=== PATIENT | male | born 1975 | race Hispanic/Latino ===

== ENCOUNTER 2019-11-18 18:12 | Inpatient (IN) ==
[2019-11-18] MEDS ORDERED: ZOFRAN ODT PO ONE (19:01)
--- NOTE | 2019-11-18 19:01 | PROVIDER DOCUMENTATION ---
This chart was entered by Sandra Palmer Scribe, acting as scribe for Andi Marie MD. HPI-Abdominal Pain/GI Problem - General Chief Complaint: Constipation Stated Complaint: STOMACH PAIN Time Seen by Provider: 11/18/19 18:40 Source: patient Allergies/Adverse Reactions: Patient Allergies Allergy/AdvReac Type Severity Reaction Status Date / Time No Known Allergies Allergy Verified 11/18/19 18:31 Home Medications: Home Medication List Medication Instructions Recorded Confirmed Last Taken Type NK [No Home Medications] 11/18/19 11/18/19 Unknown History - History of Present Illness-ABD Nature of Presenting Problems: Patient is a 44 y/o male presenting to the ED today c/o abdominal pain and co nstipation. Patient reports he has not had a bowel movement today. Patient reports he has had some N/V. Patient reports he has been unable to eat today. Patient states that last thing he ate was tacos yesterday. Patient denies dysuria. Patient denies all other signs/symptoms. Abdominal Pain Onset Location: reports: generalized abdomen Pain Radiation: reports: no radiation Quality of Pain: reports: aching Onset/Duration: reports: this morning Timing: reports: still present Associated Symptoms: reports: constipation Last BM: 24 hours ago Bruising or Bleeding Gums?: No Similar Symptoms Previously?: No Recently seen or treated by another doctor?: No Review of Systems - Adult - REVIEW OF SYSTEMS - ADULT Constitutional: denies: chills, fever Eyes: reports: no symptoms reported Ears, Nose, Mouth & Throat: reports: no symptoms reported Cardiovascular: denies: chest pain Respiratory: denies: cough, shortness of breath Gastrointestinal: reports: abdominal pain, constipation, nausea, vomiting. denies: diarrhea Genitourinary: denies: dysuria Musculoskeletal: reports: no symptoms reported Integumentary: reports: no symptoms reported Neurological: reports: no symptoms reported Psychiatric: reports: no symptoms reported Endocrine: reports: no symptoms reported Hematologic/Lymphatic: reports: no symptoms reported Allergic/Immunologic: reports: no symptoms reported All Other Systems: Reviewed and Negative Past History - Adult - PAST MEDICAL HISTORY-ADULT Review of Records: reports: Old Records Reviewed, Nursing Assessment Review, Medications Reviewed, Social history reviewed & non-contributory. Major Childhood Illnesses: reports: denies history Cardiovascular: reports: denies history Respiratory: reports: denies history Gastrointestinal: reports: denies history Obstetrical/Gynecological: reports: denies history Genitourinary: reports: denies history Musculoskeletal: reports: denies history Neurological: reports: denies history Psychiatric: reports: denies history Endocrine/Immune: reports: denies history Other Conditions: reports: denies history Physical Exam-General - PHYSICAL EXAM-ADULT Initial Vital Signs Reviewed: Yes - CONSTITUTIONAL General Appearance: appears well, alert, no apparent distress - EYES Eyes: PERRL/EOMI - HEAD, EARS, NOSE, MOUTH & THROAT HENMT: normocephalic/atraumatic, moist mucous membranes, normal ENT inspection - NECK Neck: non-tender, full range of motion, supple - RESPIRATORY Respiratory: lungs clear, normal breath sounds, no respiratory distress, no accessory muscle use - CARDIOVASCULAR Cardiovascular: regular rate, rhythm, no edema - GASTROINTESTINAL (ABDOMEN) Abdominal Exam: soft, tenderness (epigastric) - LYMPHATIC Lymphatic: no adenopathy - MUSCULOSKELETAL Back Exam: normal inspection, no CVA tenderness, no vertebral tenderness Extremity: normal range of motion, normal gait, normal inspection, no pedal edema - SKIN Integumentary: normal color, normal turgor, warm/dry - NEUROLOGIC Neurologic: grossly normal - PSYCHIATRIC Psych/Mental Status: normal mood/affect, normal thought content, normal thought process Progress - PLAN OF CARE/RESULTS Progress/Plan/Lab Results: Vital Signs - 8 hr 11/18/19 18:29 Temperature 98 F Pulse Rate 90 Respiratory Rate 18 Blood Pressure 139/92 O2 Sat by Pulse Oximetry 95 Orders Category Date Time Status Saline Loc DIRECTED Care 11/18/19 18:25 Active NPO Diet 11/18/19 18:25 Active FLAT/UPRIGHT ABD/1 VIEW CHEST [RAD] Stat Exams 11/18/19 18:28 Ordered CBC WITH ELECTRONIC DIFF [HEME] Stat Lab 11/18/19 18:25 Ordered COMPREHENSIVE METABOLIC PANEL [CHEM] Stat Lab 11/18/19 18:25 Uncollected LIPASE [CHEM] Stat Lab 11/18/19 18:25 Uncollected Result Diagrams: 11/18/19 19:35 11/18/19 19:35 - XRAY 1 XRAY Study: Abdomen Impression: See EMR Report (FLAT/UPRIGHT ABD/1 VIEW CHEST - 11/18/2019 INDICATION: constipation nausea TECHNIQUE: COMPARISON: None FINDINGS: The chest is clear. There is a nonobstructive bowel gas pattern. No free air or abnormal calcifications. IMPRESSION: Negative exam. Electronically signed by Carlos Dickerson 11/18/2019 7:32 PM 11/18/191931 Interpreting Physician: Carlos Dickerson MD Dictated Date/Time: 11/18/191926 cc: Adams Slater MD; None,PCP) - CT/MRI 1 CT Study: Abdomen, Pelvis CT Results: acute pancreatitis MRI Study: Abdomen Impression: See EMR Report (CT ABD/PELVIS W/IV CONT ONLY - 11/18/2019 INDICATION: abdominal pain COMPARISON: None FINDINGS: The lung bases are clear and the heart size is normal. There is severe heterogeneous fatty change of the liver. There is moderate edema around the pancreas compatible with pancreatitis. No drainable fluid collections. No biliary dilation. The gallbladder is absent. No bowel obstruction or inflammation. Urinary bladder, prostate, and rectum are normal. Bones are intact and well mineralized. IMPRESSION: 1. Acute pancreatitis. 2. Severe diffuse fatty change of the liver. This exam was performed using automated exposure control, adjustment of mA or kV according to patient size, and/or use of iterative reconstruction technique Electronically signed by Carlos Dickerson 11/18/2019 9:07 PM 11/18/192106 Interpreting Physician: Carlos Dickerson MD Dictated Date/Time: 11/18/192104 cc: Andi Marie MD; None,PCP) - CONSULTS/PCP/HOSPITALIST Notification #1 *Consult/PCP/Hospitalist*: Dr. Gabriel hospitalist Time Discussed: 21:10 Consult Disposition: Admit Departure - Departure Date of Disposition Decision: 11/18/19 Time of Disposition Decision: 21:15 DIAGNOSIS: Acute pancreatitis Qualifiers: Pancreatitis type: unspecified pancreatitis type Acute pancreatitis complication: unspecified Qualified Code(s): K85.90 - Acute pancreatitis without necrosis or infection, unspecified Disposition: ADMITTED INPATIENT 09 Certified Medical Emergency: Emergent Condition: Stable Referrals and Follow-Ups: None,PCP [Primary Care Provider] - - Critical Care Note This patient required my direct & personal management of CC.: No Attestation - Physician/ LYUDMILA Attestation Patient care was provided by Advanced Practice Provider:: No The physician spent face to face time with patient:: Yes Advanced Practice Provider documentation review:: Supervising physician onsite and consulted in the evaluation and care of this patient. The physician did have a face to face encounter with the patient. This chart was documented by the indicated scribe, (Sandra Palmer, Meño) and accurately reflects the services I performed and decisions made by me, Andi Marie MD, as attested by the provider's signature.
--- NOTE | 2019-11-18 19:34 | Diag Imaging Result Doc PS360 ---
FLAT/UPRIGHT ABD/1 VIEW CHEST - 11/18/2019 INDICATION: constipation nausea TECHNIQUE: COMPARISON: None FINDINGS: The chest is clear. There is a nonobstructive bowel gas pattern. No free air or abnormal calcifications. IMPRESSION: Negative exam. Electronically signed by Carlos Dickerson 11/18/2019 7:32 PM
[2019-11-18 19:43] LABS: BASO# 0.04 X1000 (0.0-0.2); BASO% 0.4 % (0.0-0.8); EOS# 0.03 X1000 (0.0-0.7); EOS% 0.3 % (0.0-10.0); HEMATOCRIT 42.1 % (42.0-52.0); HEMOGLOBIN 14.4 g/dL (14.0-18.0); IMM GRAN# 0.02 X1000 (0.0-0.04); IMM GRAN% 0.2 % (0.0-0.5); LYMPH# 0.87 X1000 (1.2-3.4); LYMPH% 8.3 % (20.5-51.1); MCH 28.8 PG (27-31); MCHC 34.2 g/dL (33-37); MCV 84.2 FL (81-99); MONO# 0.77 X1000 (0.11-0.59); MONO% 7.3 % (1.7-9.3); MPV 11.3 FL (7.4-10.4); NEUT# 8.75 X1000 (1.4-6.5); NEUT% 83.5 % (42.2-75.2); PLT 215 X1000 (130-400); WBC 10.48 X1000 (4.8-10.8)
[2019-11-18 20:12] LABS: AGAP 14; ALBUMIN 4.4 g/dL (3.5-5.0); ALKALINE PHOSPHATASE 68 U/L (32-122); BUN 8 mg/dL (8-22); CALCIUM 8.7 mg/dL (8.8-10.2); CHLORIDE 91 mmol/L (98-107); COSMO 267; CREATININE 0.4 mg/dL (0.7-1.2); ESTIMATED GFR > 60; GLUCOSE 239 mg/dL (70-104); GOT 38 U/L (10-34); GPT 34 U/L (10-44); LIPASE 258 U/L (13-60); POTASSIUM 4.3 mmol/L (3.5-5.1); SODIUM 130 mmol/L (136-145); TCO2 25 mmol/L (25-35); TOTAL PROTEIN 7.6 g/dL (6.3-8.3)
--- NOTE | 2019-11-18 21:09 | Diag Imaging Result Doc PS360 ---
CT ABD/PELVIS W/IV CONT ONLY - 11/18/2019 INDICATION: abdominal pain COMPARISON: None FINDINGS: The lung bases are clear and the heart size is normal. There is severe heterogeneous fatty change of the liver. There is moderate edema around the pancreas compatible with pancreatitis. No drainable fluid collections. No biliary dilation. The gallbladder is absent. No bowel obstruction or inflammation. Urinary bladder, prostate, and rectum are normal. Bones are intact and well mineralized. IMPRESSION: 1. Acute pancreatitis. 2. Severe diffuse fatty change of the liver. This exam was performed using automated exposure control, adjustment of mA or kV according to patient size, and/or use of iterative reconstruction technique Electronically signed by Carlos Dickerson 11/18/2019 9:07 PM
[2019-11-18] MEDS ORDERED: ZOFRAN IV PRN (21:29)
[2019-11-18] MEDS ORDERED: NS 1,000 ML IV ONE (21:29)
[2019-11-18] MEDS: DILAUDID IM PRN (21:48)
[2019-11-18] MEDS: ZOFRAN IV PRN (21:48)
[2019-11-19] MEDS: DILAUDID IM PRN (08:06)
[2019-11-19] MEDS: ZOFRAN IV PRN (08:06)
[2019-11-19 10:00] LABS: HEMOGLOBIN A1C 9.5 % (4.8-6.0)
--- NOTE | 2019-11-19 10:13 | HISTORY AND PHYSICAL ---
PRIMARY CARE PHYSICIAN: None. CHIEF COMPLAINT: Generalized abdominal pain, nausea, vomiting, decreased appetite, and constipation that has progressively worsened over the last couple of days. HISTORY OF PRESENTING ILLNESS: This is a 44-year-old male who presents to [facility] ER with complaints of generalized abdominal pain with nausea, vomiting, decreased appetite, and constipation over the past several days that has progressively worsened. His workup showed a sodium of 130. His glucose was 239 and does not have a known diagnosis of diabetes. His amylase was 121, lipase of 258. We checked a CT of the abdomen and pelvis that showed an acute pancreatitis and severe diffuse fatty change of the liver. An abdominal x-ray was negative so he will be admitted for further evaluation and treatment. PAST MEDICAL HISTORY: None. PAST SURGICAL HISTORY: Cholecystectomy. FAMILY HISTORY: Reviewed and noncontributory. SOCIAL HISTORY: He currently lives with family. Denied any tobacco, alcohol, or illicit drug use. ALLERGIES: He has no known drug allergies. HOME MEDICATIONS: He does not take any medications on a routine basis. LABORATORY DATA: Showed a white blood cell count of 10.48, hemoglobin 14.4, hematocrit 42.1, platelets 215,000. Sodium 130, potassium 4.3, chloride 91, CO2 of 25, BUN of 8, creatinine 0.4. Amylase 121, lipase 258. CT of the abdomen and pelvis showed an acute pancreatitis and severe diffuse fatty change of the liver. REVIEW OF SYSTEMS: He denied any fever, chills, blurred vision, dizziness, chest pain, coughing, shortness of breath. He was positive for generalized abdominal pain, nausea, vomiting, constipation, decreased appetite. Denied any burning or hurting with urination. PHYSICAL EXAMINATION: VITAL SIGNS: On arrival, he had a temperature of 98 degrees, pulse 90, respirations 18, blood pressure 139/92. GENERAL: This is a 44-year-old male who is lying in the bed. Answers questions appropriately. HEENT: Normocephalic, atraumatic. Normal ENT inspection. Oropharynx and nares are clear. Eyes: Pupils are equal, round, and reactive to light and accommodation. Extraocular movements are intact. NECK: Normal inspection. Normal range of motion. LUNGS: Clear to auscultation bilaterally with equal lung expansion and chest wall movement. HEART: Regular rate and rhythm. No murmurs, rubs, or gallops. ABDOMEN: Soft. There is some tenderness to the epigastric area to palpation. Bowel sounds are present x4 quadrants. MUSCULOSKELETAL: Has 5/5 strength x4 extremities. NEUROLOGICAL: The cranial nerves 2-12 appear grossly intact. ASSESSMENT: 1. Generalized abdominal pain. 2. Acute pancreatitis. 3. Hyponatremia. 4. Hyperglycemia. PLAN: He was admitted to the medical unit. Held NPO. We are going to check a hemoglobin A1c. Place him on Dilaudid 1 mg IM q.4 hours p.r.n., Zofran 4 mg IV q.4 hours p.r.n., normal saline at 125 mL an hour. Recheck a CBC and BMP in the a.m. Further orders after seen by attending. Dictated by CORRIE Benavides for Juancarlos Gabriel MD cc: CORRIE Benavides MD
[2019-11-19] MEDS: NS 1,000 ML IV SCH ×2 (10:35→18:44)
[2019-11-19] MEDS ORDERED: DILAUDID IV PRN (10:39)
[2019-11-19] MEDS: HUMALOG (PARKWAY) SUBQ SCH ×2 (16:40→20:16)
--- NOTE | 2019-11-19 22:53 | HISTORY AND PHYSICAL ---
ADDENDUM: Patient seen and examined by myself. Full note dictated and discussed with nurse practitioner. Patient presented to the hospital with nausea, vomiting, abdominal pain, subsequently diagnosed with pancreatitis. We are going to admit him to the hospital. IV fluids, NPO, check triglyceride levels and we will follow. Also appears that he has new onset diabetes. We will begin education and counseling. cc: Juancarlos Gabriel MD
[2019-11-20] MEDS: NS 1,000 ML IV SCH ×3 (03:13→22:11)
[2019-11-20] MEDS: HUMALOG (PARKWAY) SUBQ SCH ×4 (06:00→22:11)
[2019-11-20 06:56] LABS: BASO# 0.03 X1000 (0.0-0.2); BASO% 0.3 % (0.0-0.8); EOS# 0.05 X1000 (0.0-0.7); EOS% 0.6 % (0.0-10.0); HEMATOCRIT 39.6 % (42.0-52.0); HEMOGLOBIN 12.4 g/dL (14.0-18.0); IMM GRAN# 0.08 X1000 (0.0-0.04); IMM GRAN% 0.9 % (0.0-0.5); LYMPH# 1.23 X1000 (1.2-3.4); LYMPH% 13.6 % (20.5-51.1); MCH 27.3 PG (27-31); MCHC 31.3 g/dL (33-37); MCV 87.2 FL (81-99); MONO# 0.88 X1000 (0.11-0.59); MONO% 9.7 % (1.7-9.3); MPV 11.1 FL (7.4-10.4); NEUT# 6.79 X1000 (1.4-6.5); NEUT% 74.9 % (42.2-75.2); PLT 208 X1000 (130-400); RBC 4.54 XMIL (4.7-6.1); RDW 13.5 % (11.5-14.5); WBC 9.06 X1000 (4.8-10.8)
[2019-11-20 07:15] LABS: AGAP 10; BUN 6 mg/dL (8-22); CALCIUM 8.5 mg/dL (8.8-10.2); CHLORIDE 97 mmol/L (98-107); COSMO 274; CREATININE 0.4 mg/dL (0.7-1.2); ESTIMATED GFR > 60; GLUCOSE 185 mg/dL (70-104); POTASSIUM 3.6 mmol/L (3.5-5.1); SODIUM 136 mmol/L (136-145); TCO2 29 mmol/L (25-35)
[2019-11-20] MEDS ORDERED: FLU VACCINE IM ONE (08:00)
--- NOTE | 2019-11-20 17:32 | PROGRESS NOTE ---
DATE: 11/20/2019 SUBJECTIVE: The patient overall notes that he is feeling better, less abdominal pain, less nausea. OBJECTIVE: Vital signs: Temperature 98, pulse 82, respiratory rate 18, BP 136/81. General: Patient is awake, alert. He is pleasant. He is in no respiratory distress. HEENT: Normocephalic. Neck: Supple. Cardiovascular: Regular rate. Chest: Clear and unlabored. Abdomen: Soft. Minimal tenderness in the epigastric region, much improved from admission. Obese. Positive bowel sounds. Extremities: Moves all extremities. No edema. Neurologic: No focal neurological changes. Skin: Warm and dry. No rashes. ASSESSMENT: 1. Acute pancreatitis. 2. Hypertriglyceridemia, triglycerides are 4,164. 3. Diabetes, new onset with an A1c of 9.3. PLAN: We are going to continue the patient in the hospital. Advance his diet as tolerated. We will continue insulin for his blood sugar, also to help get his triglycerides back under control. If he tolerates full liquids, hopefully he can tolerate a soft diet and be discharged home tomorrow. cc: Juancarlos Gabriel MD
[2019-11-20] MEDS ORDERED: TYLENOL PO PRN (18:17)
[2019-11-21] MEDS: NS 1,000 ML IV SCH (06:24)
[2019-11-21] MEDS: HUMALOG (PARKWAY) SUBQ SCH ×2 (07:18→10:58)
[2019-11-21 07:34] VITALS: BP 121/68
[2019-11-21] MEDS ORDERED: LANTUS INSULIN SUBQ ONE (10:23)
--- NOTE | 2019-11-21 11:44 | DISCHARGE SUMMARY ---
ADMISSION DATE: 11/18/2019 DISCHARGE DATE: 11/21/2019 PRIMARY CARE PHYSICIAN: None. ADMISSION DIAGNOSES: 1. Generalized abdominal pain. 2. Acute pancreatitis. 3. Hyponatremia. 4. Hyperglycemia. DISCHARGE DIAGNOSES: 1. Acute pancreatitis, improved. 2. Hypertriglyceridemia with triglycerides 4164. 3. New onset diabetes with A1c of 9.3. SUMMARY OF FINDINGS: This is a 44-year-old male who presented with generalized abdominal pain with nausea, vomiting, decreased appetite, and constipation for several days that had progressively worsened. When he arrived, he had a sodium of 130, his glucose was 239. At that time, he did not have a known diagnosis of diabetes. His amylase was 121, lipase 258. CT of the abdomen and pelvis showed acute pancreatitis with severe diffuse fatty changes of the liver. He was admitted. Initially held NPO. We checked his hemoglobin A1c and it was 9.3. He was placed on pattern blood sugars with sliding scale insulin. Placed on Dilaudid 1 mg IV q.4 hours p.r.n., normal saline at 125 mL an hour. His blood sugars this morning were 179 and 206. He is tolerating a GI soft diet. It is now felt that he can safely be discharged home. DISCHARGE MEDICATIONS: Lantus SoloSTAR 5 units subcutaneous daily. We will place him on fish oil 1200 mg daily. It is felt that once his blood sugar gets under control, his triglycerides should improve and he will need to obtain a primary care physician for followup. All discharge instructions have been reviewed with the patient and he verbalized understanding. This is a 35 minute discharge. Dictated by CORRIE Benavides for Juancarlos Gabriel MD cc: CORRIE Benavides MD
--- NOTE | 2019-11-21 15:29 | DISCHARGE SUMMARY ---
ADMISSION DATE: 11/18/2019 DISCHARGE DATE: 11/21/2019 HOSPITAL COURSE: The patient was initially admitted to the hospital with nausea, vomiting, and diagnosed with pancreatitis. He also was found to have acute new onset diabetes with an A1c of 9.7. Triglycerides also were markedly elevated at 4164. The patient thankfully had an uneventful hospital course. On discharge, he is awake and alert. He is in no distress. He is tolerating a full diet. He is very pleasant. We placed him on insulin. He will continue this for the next month or so at which time he can transition hopefully over to oral antibiotics. I also discussed with him the use of fish oil. We prefer him to be on Vascepa if his insurance approves. Once his triglycerides improve, then he can hopefully transition over to oral medications. cc: Juancarlos Gabriel MD MTDD
== END 2019-11-21 13:25 | disposition home or self-care (01) ==
LOC: P.ED 18:12 → P.MEDSURG 22:11
PROVIDERS: ATTEND Family Medicine